=== PATIENT | male | born 1980 | race Caucasian/White ===

== ENCOUNTER 2020-06-15 10:48 | Emergency (ER) | payer OTHER, BC, SELFPAY ==
--- NOTE | ~2020-06-15 | XR_ITS ---
EXAMINATION: XR chest 1V portable EXAM DATE: 06/15/2020 11:37 INDICATION: Fall. Metatarsal fractures. TECHNIQUE: Portable AP frontal chest x-ray was obtained. There is no prior study for comparison. FINDINGS: The lungs are clear. There are no pleural effusions. The cardiomediastinal silhouette is within normal limits. There is no pneumothorax suspected. The bones and soft tissues are unremarkab le. IMPRESSION: No acute cardiopulmonary findings. Reviewed, dictated and finalized at location A.
--- NOTE | ~2020-06-15 | XR_ITS ---
EXAMINATION: XR foot LT min 3V EXAM DATE: 06/15/2020 11:36 INDICATION: Initial encounter following injury, with pain of the left foot. TECHNIQUE: Left foot dorsoplantar, lateral and oblique projections obtained and reviewed. There is n o prior study for comparison. FINDINGS: There are acute closed posttraumatic left 4th and 5th metatarsal shaft fractures. The 4th metatarsal fracture has about 6 mm displacement, is obliquely oriented through the neck to mi d shaft, in near-anatomic alignment. The 5th metatarsal fracture mainly involves the shaft, but fracture line is identified extending into the tarsometatarsal joint. Portions of this fracture also have displacement. Near-anatomic alignment . Tarsal bones and phalanges are unremarkable. IMPRESSION: Acute left 4th, 5th metatarsal fractures as described above. Reviewed, dictated and finalized at location A.
[2020-06-15 11:09] VITALS: BP 90/57; PULSE 90; RESP 17; TEMP 37.1; O2SAT 100
[2020-06-15 11:20] VITALS: BP 109/82; PULSE 83; RESP 19; O2SAT 100
--- NOTE | 2020-06-15 11:20 | ED.FALL ---
HPI - Fall General Chief Complaint: Fall Stated Complaint: left foot injury Time Seen by Provider: 06/15/20 11:13 Source: RN notes reviewed History of Present Illness HPI Narrative: Patient presents emergency department via private vehicle for a fall. Patient states approximately 3 hours ago here was on a 12 foot roof and fell off the roof. He states he landed initially on his feet and then onto his buttocks. He states that since that time is had pain in his left lateral foot with pain with walking on the foot he denies any other injuries from the fall denies striking his head or loss of consciousness. Denies neck pain chest pain shortness of breath abdominal pain nausea vomiting back pain left hip knee or ankle pain patient states he took no previous pain medication for the symptoms. Related Data Home Medications Medication Instructions Recorded Confirmed bupropion HCl [Wellbutrin XL] 150 mg PO QAM 06/15/20 simvastatin 5 mg PO DAILY 06/15/20 Allergies Allergy/AdvReac Type Severity Reaction Status Date / Time Penicillins Allergy Unknown Verified 06/15/20 11:19 Review of Systems Review of Systems: Narrative: Gen.: Denies fevers or chills Eyes: Denies eye pain or visual change ENT: Denies congestion Respiratory: Denies shortness of breath or cough CV: Denies chest pain or palpitations GI: Denies abdominal pain nausea, emesis or diarrhea denies burning, urgency, frequency or hematuria Musculoskeletal: See HPI Neuro: Denies numbness, tingling, weakness or focal weakness Skin: Denies rash Except as documented, all other systems reviewed and negative PMFSH Past Medical History Medical History (Updated 06/15/20 @ 13:10 by Jesus De La Torre DO) Hypercholesterolemia Social History Social History (Updated 06/15/20 @ 11:21 by Jesus De La Torre DO) Smoking packs per day: 0.5 Smoking cigarettes per day: 10.0 Gender identity (if verbalized by the patient): Male Exam Narrative: Exam Narrative: APPEARANCE: Well appearing, no apparent distress, well-nourished. HEENT: normocephalic atraumtaic. TMs clear bilaterally. Oral mucosa moist. No tenderness over bilateral zygomatic arch. Full range of motion of jaw without pain. EYES: PERRL NECK: Supple. No midline tenderness to palpation. Full range of motion without pain RESPIRATORY: No respiratory distress. Clear to auscultation bilaterally CARDIOVASCULAR: Regular rate and rhythm without murmurs rubs or gallops. ABDOMINAL: Soft, nontender, nondistended, no rebound or guarding MUSCULOSKELETAl: Moves all extremities. No tenderness to palpation of bilateral upper and lower extremities except tender to palpation over the left lateral foot with mild swelling and no ecchymosis, no tenderness of the ankle, bilateral dorsalis pedis pulse 2+. No clubbing cyanosis or edema Back: No midline thoracic or lumbar tenderness to palpation Pelvis: Stable, nontender NEURO: Awake and alert ?3. Follows commands. Speech normal. No focal deficits. SKIN:: Warm, dry. Normal Color Course Course Emergency Course: Discussed Dr. Bonilla presentation work-up. Agrees to follow-up in the office Discussed with patient results of workup and diagnosis. Discussed need for follow-up with primary care, proper use of medication, and reasons to return to the emergency department. Patient understands and agrees to current treatment plan Vital Signs Vital signs: Vital Signs Temperature 98.7 F 06/15/20 11:09 Pulse Rate 90 06/15/20 11:09 Respiratory Rate 17 06/15/20 11:09 Blood Pressure 90/57 L 06/15/20 11:09 Pulse Oximetry 100 06/15/20 11:09 Temperature 98.7 F 06/15/20 11:09 Pulse Rate 83 06/15/20 11:20 Respiratory Rate 19 06/15/20 11:20 Blood Pressure 109/82 06/15/20 11:20 Pulse Oximetry 100 06/15/20 11:20 Procedures Orthopedic Splinting/Casting Injury #1: Additional Comments: Left posterior short leg splint placed by nursing staff. Patient evaluated by
[2020-06-15] MEDS: IBUPROFEN 600 MG TABLET PO (12:14)
[2020-06-15 13:32] VITALS: BP 131/75; PULSE 75; RESP 15; O2SAT 100
--- NOTE | 2020-06-21 11:50 | PC.NURSE ---
LATE ENTRY Left leg splint applied to pt by senior technical editor.
== END 2020-06-15 13:33 | disposition home or self-care (01) ==
PROVIDERS: Emergency Provider Emergency Medicine
DX: S92.342A Displaced fracture of fourth metatarsal bone, left foot, initial encounter for closed fracture (principal); S92.352A Displaced fracture of fifth metatarsal bone, left foot, initial encounter for closed fracture; E78.00 Pure hypercholesterolemia, unspecified; F17.210 Nicotine dependence, cigarettes, uncomplicated; W13.2XXA Fall from, out of or through roof, initial encounter
CPT/HCPCS: 29515; 71045; 73630; 99284; A9270